=== PATIENT | female | born 1985 | race American Indian/Alaskan Native ===

== ENCOUNTER 2017-11-06 12:37 | Outpatient (CLI) | payer OTHER | END 2017-11-06 13:31 | disposition home or self-care (01) | LOC: NST 12:37 | DX: Z34.03 Encounter for supervision of normal first pregnancy, third trimester (principal) ==

== ENCOUNTER 2017-11-06 13:00 | Inpatient (IN) | payer OTHER ==
[~2017-11-06] VITALS: Ht 167.6 cm; Wt 3.2 kg
[2017-11-13] MEDS ORDERED: PRENATAL FORMU1 EAC1 PO (11:36)
[2017-11-13] MEDS ORDERED: IRON PO (11:38)
[2017-11-13] MEDS ORDERED: ALEGRA PO (11:39)
== END 2017-11-15 14:31 | DRG 766 ==
LOC: SURG-SUITE 11-13 11:02 → O/R 11-13 11:02 → LDR 11-13 13:00 → OB/GYN 11-13 15:43 → SURG-SUITE 11-13 17:55
PROVIDERS: Obstetrics & Gynecology Maternal & Fetal Medicine
PROC: 4A1HXCZ Monitoring of Products of Conception, Cardiac Rate, External Approach (ICD-10-PCS; 2017-11-13)
PROC: 4A033R1 Measurement of Arterial Saturation, Peripheral, Percutaneous Approach (ICD-10-PCS; 2017-11-13)
PROC: 10D00Z1 Extraction of Products of Conception, Low, Open Approach (ICD-10-PCS; principal; 2017-11-13 12:00)
DX: O34.211 Maternal care for low transverse scar from previous cesarean delivery (principal); Z3A.39 39 weeks gestation of pregnancy; Z37.0 Single live birth